=== PATIENT | male | born 1950 | race Caucasian/White ===

== ENCOUNTER 2017-06-18 10:14 | Inpatient (IN) | payer SELFPAY ==
[~2017-06-18] VITALS: Ht 165.1 cm; Wt 59.9 kg
[2017-06-18] MEDS ORDERED: SODIUM CHLORIDE 0.9% 1,000 ML IV ONE (11:00)
[2017-06-18 11:04] LABS: BASOPHILS % 0.7 % (0.0-2.0); EOSINOPHILS % 1.1 % (0.0-5.0); HEMATOCRIT. 23.9 % (42.0-52.0); HEMOGLOBIN. 7.8 g/dL (14.0-18.0); LYMPHOCYTES % 17.7 % (20.0-50.0); MEAN CORPUSCULAR HEMOGLOBIN 25.6 pg (28.0-32.0); MEAN CORPUSCULAR VOLUME 78.9 fL (80.0-94.0); MEAN PLATELET VOLUME 6.5 fl (7.4-10.4); MONOCYTES % 6.8 % (2.0-8.0); NEUTROPHILS % 73.7 % (40.0-76.0); PLATELET 304 x1000/uL (130-400); RED BLOOD CELL COUNT 3.03 mill/uL (4.7-6.1); RED CELL DISTRIBUTION WIDTH 17.6 % (11.6-14.6)
[2017-06-18 11:12] LABS: INR 1.1; PROTHROMBIN TIME 11.9 sec
[2017-06-18] MEDS ORDERED: HYDROCODONE/ACETAMINOPHEN 5/325MG TABLET PO ONE (11:15)
[2017-06-18 11:21] LABS: CARBON DIOXIDE 27 mEq/L (21-32); CHLORIDE 108 mEq/L (98-107)
[2017-06-18] MEDS ORDERED: AMPICILLIN SOD/SULBACTAM NA 3 G in SODIUM CHLORIDE 0.9% 100 ML IV SCH (12:30)
[2017-06-18] MEDS ORDERED: MORPHINE SULFATE 4 MG/ML CPJ (NOT FOR IM USE) IV ONE (13:45)
[2017-06-18] MEDS ORDERED: ONDANSETRON HCL 4MG/2ML VIAL IV PRN (16:45)
[2017-06-18] MEDS ORDERED: IPRATROPIUM/ALBUTEROL 0.5-3(2.5)MG/3ML NEB INH PRN (16:45)
[2017-06-18] MEDS ORDERED: DOCUSATE SODIUM 100MG CAPSULE PO PRN (16:45)
[2017-06-18] MEDS ORDERED: HYDROCODONE/ACETAMINOPHEN 5/325MG TABLET PO PRN (16:45)
[2017-06-18 17:02] LABS: ETHANOL BLOOD < 10 mg/dL; TOTAL IRON BINDING CAPACITY 316 ug/dL (250-450)
[2017-06-18 18:00] VITALS: BP 107/56
[2017-06-18 18:58] VITALS: BP 107/56
[2017-06-18 20:00] VITALS: BP 113/58
[2017-06-18] MEDS ORDERED: VANCOMYCIN 1250MG in DEXTROSE 5% WATER 250ML IV SCH (20:00)
[2017-06-18] MEDS: MORPHINE SULFATE 2 MG/ML CPJ (NOT FOR IM USE) IV PRN (20:45)
[2017-06-18] MEDS ORDERED: ZOLPIDEM TARTRATE 5MG TABLET PO PRN (21:00)
[2017-06-18 22:50] VITALS: BP 112/47
[2017-06-18 23:05] VITALS: BP 115/53
[2017-06-19] VITALS (17 sets, daily range): BP systolic 106–149; BP diastolic 46–80
[2017-06-19] MEDS: MORPHINE SULFATE 2 MG/ML CPJ (NOT FOR IM USE) IV PRN ×4 (00:55→18:24)
[2017-06-19] MEDS: VANCOMYCIN 750 MG PREMIX 150 ML IV SCH ×2 (05:09→18:00)
[2017-06-19 06:38] LABS: EOSINOPHILS % 2.9 % (0.0-5.0); LYMPHOCYTES % 17.5 % (20.0-50.0); MEAN CORPUSCULAR VOLUME 80.1 fL (80.0-94.0); MEAN PLATELET VOLUME 6.8 fl (7.4-10.4); NEUTROPHILS % 69.6 % (40.0-76.0); PLATELET 233 x1000/uL (130-400); RED BLOOD CELL COUNT 2.62 mill/uL (4.7-6.1); RED CELL DISTRIBUTION WIDTH 17.7 % (11.6-14.6)
[2017-06-19 07:00] LABS: HEMOGLOBIN. 6.8 g/dL (14.0-18.0)
[2017-06-19 07:44] LABS: CHLORIDE 109 mEq/L (98-107)
[2017-06-19 07:48] LABS: CARBON DIOXIDE 24 mEq/L (21-32)
[2017-06-19] MEDS: PANTOPRAZOLE SODIUM 40 MG/VIAL IV SCH (08:24)
[2017-06-19] MEDS: FERROUS SULFATE 325MG TABLET PO SCH ×3 (08:25→18:38)
[2017-06-19] MEDS ORDERED: ACETAMINOPHEN 325MG TABLET PO PRN (18:45)
[2017-06-19 22:51] LABS: HEMATOCRIT 24.2 % (42.0-52.0); HEMOGLOBIN 8.1 g/dL (14.0-18.0)
[2017-06-20] VITALS: BP 118/64
[2017-06-20 04:00] VITALS: BP 138/75
[2017-06-20 04:32] LABS: BASOPHILS % 0.8 % (0.0-2.0); EOSINOPHILS % 3.3 % (0.0-5.0); HEMATOCRIT. 24.8 % (42.0-52.0); HEMOGLOBIN. 8.3 g/dL (14.0-18.0); LYMPHOCYTES % 22.5 % (20.0-50.0); MEAN CORPUSCULAR HEMOGLOBIN 26.9 pg (28.0-32.0); MEAN CORPUSCULAR VOLUME 80.4 fL (80.0-94.0); MEAN PLATELET VOLUME 6.8 fl (7.4-10.4); MONOCYTES % 9.4 % (2.0-8.0); PLATELET 207 x1000/uL (130-400); RED BLOOD CELL COUNT 3.08 mill/uL (4.7-6.1); RED CELL DISTRIBUTION WIDTH 17.8 % (11.6-14.6)
[2017-06-20 05:02] LABS: CARBON DIOXIDE 29 mEq/L (21-32); CHLORIDE 106 mEq/L (98-107); VANCOMYCIN TROUGH 4.1 ug/mL (5.0-10.0)
[2017-06-20] MEDS: VANCOMYCIN 750 MG PREMIX 150 ML IV SCH (06:50)
[2017-06-20] MEDS: PANTOPRAZOLE SODIUM 40 MG/VIAL IV SCH (09:05)
[2017-06-20] MEDS: FERROUS SULFATE 325MG TABLET PO SCH (09:05)
[2017-06-20] MEDS: MORPHINE SULFATE 2 MG/ML CPJ (NOT FOR IM USE) IV PRN (09:29)
[2017-06-20 09:31] VITALS: BP 156/71
== END 2017-06-20 10:55 | disposition home or self-care (01) | DRG 380 ==
LOC: ER 10:14 → SUPCPDRO 15:25 → ENRESERV 16:03 → 6EST 17:51
PROVIDERS: ADMIT Family Medicine Adult Medicine; ATTEND Family Medicine Adult Medicine
PROC: 30233N1 Transfusion of Nonautologous Red Blood Cells into Peripheral Vein, Percutaneous Approach (ICD-10-PCS; principal; 2017-06-18)
DX: L97.919 Non-pressure chronic ulcer of unspecified part of right lower leg with unspecified severity (principal); E46 Unspecified protein-calorie malnutrition; I11.9 Hypertensive heart disease without heart failure; I87.2 Venous insufficiency (chronic) (peripheral); I77.1 Stricture of artery; R73.9 Hyperglycemia, unspecified; Z68.22 Body mass index [BMI] 22.0-22.9, adult; I83.90 Asymptomatic varicose veins of unspecified lower extremity; D50.9 Iron deficiency anemia, unspecified
CPT/HCPCS: 36415; 71010; 80048; 80053; 80076; 80202; 83036; 83540; 83550; 85014; 85018; 85025; 85610; 86850; 86900; 86920; 87040; 93005; 93971; 96361; 96365; 96375; 99285; C9113; G0482; J0295; J2270; J2405; J3370; J7030; J7040; J7050; J7060; P9016